=== PATIENT | female | born 2000 | race African-American/Black ===

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

== ENCOUNTER → 2019-06-29 | Outpatient (CLI) | payer BC | END | disposition home or self-care (01) | LOC: LAB EV 12:42 → LAB SHORT 12:42 | DX: Z34.91 Encounter for supervision of normal pregnancy, unspecified, first trimester (principal) | CPT/HCPCS: 84702 ==

== ENCOUNTER → 2020-01-31 | Outpatient (CLI) | payer OTHER ==
[~2020-01-31] MED LIST changes: +DOCU100 PO; +ESCI10 PO; +IBUP800 PO; +METO5A; +PRENATAL TABLE1 EAC2; +PYRI100
== END | disposition home or self-care (01) ==
LOC: LAB 14:08 → LAB SHORT 14:08
DX: Z34.03 Encounter for supervision of normal first pregnancy, third trimester (principal)
CPT/HCPCS: 87081; 87150

== ENCOUNTER 2020-02-27 21:05 | Inpatient (IN) | payer BC, OTHER ==
[~2020-02-27] VITALS: Ht 160 cm; Wt 89.0 kg
[~2020-02-27 21:05] MED LIST changes: -DOCU100 PO; -ESCI10 PO; -IBUP800 PO; -METO5A; -PRENATAL TABLE1 EAC2; -PYRI100
[2020-02-27 21:57] LABS: BASOPHILS ABSOLUTE AUTO 0.04 K/mm3 (0.00-0.23); BASOPHILS PERCENT AUTO 0 % (0-2); EOSINOPHILS ABSOLUTE AUTO 0.06 K/mm3 (0.00-0.68); EOSINOPHILS PERCENT AUTO 0 % (0-6); Hemoglobin 12.9 g/dL (11.5-16.0); IMMATURE GRAN ABSOLUTE AUTO 0.09 K/mm3 (0.00-0.10); IMMATURE GRAN PERCENT AUTO 1 % (0-1); LYMPHOCYTES ABSOLUTE AUTO 2.27 K/mm3 (0.84-5.20); LYMPHOCYTES PERCENT AUTO 14 % (21-46); MONOCYTES ABSOLUTE AUTO 1.17 K/mm3 (0.16-1.47); MONOCYTES PERCENT AUTO 7 % (4-13); Mean Corpuscular HGB 28.9 pg (26.0-34.0); Mean Corpuscular HGB Conc 33.1 g/dL (31.5-36.5); Mean Corpuscular Volume 87 fL (80-100); Mean Platelet Volume 10.6 fL (9.1-12.4); NEUTROPHILS ABSOLUTE AUTO 12.71 K/mm3 (1.96-9.15); NEUTROPHILS PERCENT AUTO 78 % (41-73); Platelet Count 242 K/mm3 (150-400); RDW Coefficient Variation 12.9 % (11.7-14.2); RDW Standard Deviation 41.7 fL (35.1-46.3); Red Blood Cell Count 4.47 M/mm3 (3.80-5.20); White Blood Cell Count 16.34 K/mm3 (4.00-11.30)
[2020-02-27] MEDS ORDERED: PRENATAL TABLE1 EAC2 (21:59)
[2020-02-27] MEDS ORDERED: PYRI100 (22:00)
[2020-02-27] MEDS ORDERED: METO5A (22:00)
[2020-02-27] MEDS ORDERED: ESCI10 PO (22:08)
[2020-02-27 22:25] LABS: Influenza A, PCR Negative (NEGATIVE); Influenza B, PCR Negative (NEGATIVE); Resp Syncytial Virus, PCR Negative (NEGATIVE); SARS-Cov-2 (COVID-19) PCR, MMC Negative (NEGATIVE)
[2020-02-28 07:54] LABS: PCO2 Cord - Venous 58.3 mmHg (40-50); PO2 Cord - Venous 24.1 mmHg (28-32); pH Umbilical Cord - Venous 7.14 (7.26-7.35)
--- NOTE | 2020-02-28 12:30 | NUR ---
ASSUMED CARE OF PT AT 1130 TODAY. REPORT RECEIVED FROM BISI ZIMMERMAN.
--- NOTE | 2020-02-28 14:50 | NUR ---
PT OUT OF ROOM WITH S/O. NB PLACED AT NURSERY WITH STAFF.
--- NOTE | 2020-02-28 15:01 | NUR ---
PT RETURNED TO ROOM AT THIS ROOM WITH NB AND S/O. DENIES NEEDS AT THIS TIME.
--- NOTE | 2020-02-29 04:04 | NUR ---
pt denies need for pain medication caring for self and nb well, states nb just breast fed well x 20
[2020-02-29 05:36] LABS: Hematocrit 35.4 % (33.0-51.0); Hemoglobin 11.6 g/dL (11.5-16.0); Mean Corpuscular HGB Conc 32.8 g/dL (31.5-36.5); Mean Corpuscular Volume 89 fL (80-100); Mean Platelet Volume 10.7 fL (9.1-12.4); Platelet Count 214 K/mm3 (150-400); RDW Coefficient Variation 13.1 % (11.7-14.2); RDW Standard Deviation 42.6 fL (35.1-46.3); White Blood Cell Count 15.36 K/mm3 (4.00-11.30)
[2020-02-29] MEDS ORDERED: DOCU100 PO (09:08)
[2020-02-29] MEDS ORDERED: IBUP800 PO (09:08)
--- NOTE | 2020-02-29 14:35 | NUR ---
RN/LC ROUNDED TO HELP W/ . PT STATES THAT HAS BEEN GOING WELL. NB HAD JUST FED. INSTRUCTED PT ON CORRECT POSITIONING AND LATCHING, NIPPLE SHAPE AFTER FEEDS, FREQUENCY OF FEEDS, AND SUPPLY AND DEMAND OF BREASTMILK. FURTHER SUPPORT OFFERED IF PT DESIRES.
== END 2020-02-29 11:10 | disposition home or self-care (01) | DRG 807 ==
LOC: OBS 21:05 → BC 21:07 → OBS 21:31 → BC 21:32
PROVIDERS: Obstetrics & Gynecology; ADMIT Family Medicine
PROC: 10D07Z6 Extraction of Products of Conception, Vacuum, Via Natural or Artificial Opening (ICD-10-PCS; principal; 2020-02-28)
PROC: 00HU33Z Insertion of Infusion Device into Spinal Canal, Percutaneous Approach (ICD-10-PCS; 2020-02-28)
PROC: 3E0R3BZ Introduction of Anesthetic Agent into Spinal Canal, Percutaneous Approach (ICD-10-PCS; 2020-02-28)
PROC: 0HQ9XZZ Repair Perineum Skin, External Approach (ICD-10-PCS; 2020-02-28)
DX: O99.824 Streptococcus B carrier state complicating childbirth (principal); Z37.0 Single live birth; Z3A.40 40 weeks gestation of pregnancy; O66.5 Attempted application of vacuum extractor and forceps; O76 Abnormality in fetal heart rate and rhythm complicating labor and delivery; O69.81X0 Labor and delivery complicated by cord around neck, without compression, not applicable or unspecified; O70.0 First degree perineal laceration during delivery; Z20.822 Contact with and (suspected) exposure to COVID-19
CPT/HCPCS: 0241U; 36415; 51702; 59025; 82803; 85025; 85027; 86850; 86900; 86901; 99214; A9270; J0290; J1885; J2001; J2405; J2590; J3010; J7120

== ENCOUNTER → 2020-05-15 | Outpatient (CLI) | payer BC, OTHER ==
[~2020-05-15] MED LIST changes: +DOCU100 PO; +ESCI10 PO; +IBUP800 PO; +METO5A; +PRENATAL TABLE1 EAC2; +PYRI100
[2020-05-18 13:11] LABS: CHLAMYDIA TRACHOMATIS, NAA Negative (Negative)
== END | disposition home or self-care (01) ==
LOC: LAB 16:11 → LAB SHORT 16:11
PROVIDERS: Obstetrics & Gynecology
DX: Z30.09 Encounter for other general counseling and advice on contraception (principal)
CPT/HCPCS: 87491; 87591; G0123

== ENCOUNTER → 2021-02-21 | Outpatient (CLI) | payer BC, OTHER ==
[2021-02-22 10:11] LABS: Candida species (DNA Probe) Negative (NEGATIVE); G. vaginalis (DNA Probe) Positive (NEGATIVE); T. vaginalis (DNA Probe) Negative (NEGATIVE)
[2021-02-23 09:31] LABS: CHLAMYDIA TRACHOMATIS, NAA Positive (Negative)
== END | disposition home or self-care (01) ==
LOC: LAB SHORT 16:38
PROVIDERS: Obstetrics & Gynecology
DX: Z11.3 Encounter for screening for infections with a predominantly sexual mode of transmission (principal); N76.0 Acute vaginitis
CPT/HCPCS: 87480; 87491; 87510; 87591; 87660

== ENCOUNTER → 2022-02-02 | Outpatient (CLI) | payer OTHER ==
[~2022-02-02] MED LIST changes: +LAMOTRIGINE100 M1 PO; +TRAZ50 PO
[2022-02-02 11:18] LABS: BASOPHILS ABSOLUTE AUTO 0.05 K/mm3 (0.00-0.23); BASOPHILS PERCENT AUTO 1 % (0-2); EOSINOPHILS ABSOLUTE AUTO 0.09 K/mm3 (0.00-0.68); EOSINOPHILS PERCENT AUTO 1 % (0-6); Hematocrit 37.2 % (33.0-51.0); Hemoglobin 11.7 g/dL (11.5-16.0); IMMATURE GRAN ABSOLUTE AUTO 0.01 K/mm3 (0.00-0.10); IMMATURE GRAN PERCENT AUTO 0 % (0-1); LYMPHOCYTES ABSOLUTE AUTO 1.34 K/mm3 (0.84-5.20); LYMPHOCYTES PERCENT AUTO 20 % (21-46); MONOCYTES ABSOLUTE AUTO 0.66 K/mm3 (0.16-1.47); MONOCYTES PERCENT AUTO 10 % (4-13); Mean Corpuscular HGB 26.4 pg (26.0-34.0); Mean Corpuscular HGB Conc 31.5 g/dL (31.5-36.5); Mean Corpuscular Volume 84 fL (80-100); Mean Platelet Volume 9.4 fL (9.1-12.4); NEUTROPHILS PERCENT AUTO 69 % (41-73); Platelet Count 311 K/mm3 (150-400); RDW Coefficient Variation 13.7 % (11.7-14.2); RDW Standard Deviation 42.4 fL (35.1-46.3); Red Blood Cell Count 4.43 M/mm3 (3.80-5.20); White Blood Cell Count 6.85 K/mm3 (4.00-11.30)
[2022-02-02 11:26] LABS: Albumin, Blood 3.3 g/dL (3.4-5.0); Albumin/Globulin Ratio 0.7 (0.8-1.8); Bilirubin, Total 0.2 mg/dL (0.1-1.0); Bun/Creatinine Ratio 11.4 (12.0-20.0); Calcium, Blood 8.8 mg/dL (8.5-10.1); Creatinine, Blood 0.79 mg/dL (0.40-1.00); Globulin, Blood 4.9 g/dL (2.2-4.0); Potassium, Blood 4.2 mmol/L (3.5-5.5); Total Protein, Blood 8.2 g/dL (6.4-8.2)
== END | disposition home or self-care (01) ==
LOC: LAB 11:11 → LAB SHORT 11:11
PROVIDERS: Physician Assistant Medical
DX: R59.0 Localized enlarged lymph nodes (principal)
CPT/HCPCS: 80053; 85025; 86644; 86645

== ENCOUNTER → 2022-08-30 | Outpatient (CLI) | payer OTHER ==
[2022-08-30 19:34] LABS: Source, Urine Clean Catch
[2022-08-30 19:38] LABS: Bacteria Not Seen /hpf; Red Blood Cells, Urine Not Seen /hpf (0-2); Squamous Epithelial Cells Few /hpf (Few); White Blood Cells, Urine 0-2 /hpf (0-5)
[2022-08-31 13:01] LABS: Candida species (DNA Probe) Negative (NEGATIVE); G. vaginalis (DNA Probe) Positive (NEGATIVE); T. vaginalis (DNA Probe) Negative (NEGATIVE)
[2022-09-03 14:07] LABS: CHLAMYDIA BY NAA Negative (Negative); GONOCOCCUS BY NAA Negative (Negative); TRICH VAG BY NAA Negative (Negative)
== END | disposition home or self-care (01) ==
LOC: LAB SHORT 19:32 → LAB 19:32
PROVIDERS: Emergency Medicine
DX: N89.8 Other specified noninflammatory disorders of vagina (principal); R30.0 Dysuria
CPT/HCPCS: 81015; 87086; 87480; 87491; 87510; 87591; 87660; 87661

== ENCOUNTER → 2022-12-19 | Outpatient (CLI) | payer OTHER ==
[2022-12-19 15:10] LABS: Alanine Aminotransfer (ALT/SGP 27 U/L (12-78); Alk Phos 73 U/L (50-136); Anion Gap 4 mmol/L (6-16); Aspartate Aminotrans (AST/SGOT 21 U/L (12-37); Bilirubin, Total 0.3 mg/dL (0.1-1.0); Blood Urea Nitrogen 14 mg/dL (8-24); Bun/Creatinine Ratio 18.9 (12.0-20.0); CHOL/HDL RATIO 2.7; CO2, Blood 28 mmol/L (21-32); Calcium, Blood 9.1 mg/dL (8.5-10.1); Chloride, Blood 105 mmol/L (98-108); Cholesterol 151 mg/dL (50-200); Creatinine, Blood 0.74 mg/dL (0.40-1.00); Globulin, Blood 4.1 g/dL (2.2-4.0); Glomerular Filtration Rate 117 (60-); Glucose, Blood 88 mg/dL (70-99); HDL Cholesterol 56 mg/dL (>39); LDL/HDL RATIO 1.5; Low Density Lipoprotein Chol 84 mg/dL (0-110); Potassium, Blood 3.9 mmol/L (3.5-5.5); Sodium, Blood 137 mmol/L (136-145); Total Protein, Blood 8.1 g/dL (6.4-8.2); Triglycerides 57 mg/dL (30-140); Very Low Density Lipoprot Chol 11 mg/dL (6-28)
[2022-12-20 11:07] LABS: RPR Reactive (Nonreactive)
[2022-12-20 11:08] LABS: RPR TITER 1:32
[2022-12-21 00:08] LABS: HIV AB/P24 AG SCREEN Non Reactive (Non Reactive)
[2022-12-21 00:08] LABS: CHLAMYDIA TRACHOMATIS, NAA Negative (Negative)
== END ==
LOC: LAB 12:42 → LAB SHORT 12:42
PROVIDERS: Nurse Practitioner Family
DX: Z13.6 Encounter for screening for cardiovascular disorders (principal); Z11.59 Encounter for screening for other viral diseases; F31.9 Bipolar disorder, unspecified
CPT/HCPCS: 80053; 80061; 84443; 86592; 86593; 86780; 86803; 87389; 87491; 87591

== ENCOUNTER 2023-04-14 06:01 | Emergency (ER) | payer OTHER ==
[~2023-04-14] VITALS: Ht 160 cm; Wt 81.7 kg
[2023-04-14] MEDS ORDERED: Acetaminophen 325 MG TABLET PO ONE (06:50)
[2023-04-14 08:22] VITALS: BP 136/88
== END 2023-04-14 08:29 | disposition home or self-care (01) ==
LOC: ER 06:01
DX: S00.11XA Contusion of right eyelid and periocular area, initial encounter (principal); W50.0XXA Accidental hit or strike by another person, initial encounter
CPT/HCPCS: 70480; 99283-25; A9270

== ENCOUNTER 2024-05-23 11:28 | Emergency (ER) | payer OTHER ==
[~2024-05-23] VITALS: Ht 162.6 cm; Wt 40.8 kg
[2024-05-23 11:49] VITALS: BP 111/78
[2024-05-23] MEDS ORDERED: Methocarbamol 500 MG Tab PO ONE (12:25)
[2024-05-23] MEDS ORDERED: Lidocaine 4% 1 Patch TOP ONE (12:25)
[2024-05-23] MEDS ORDERED: Ketorolac Tromethamine 15mg Vial IM ONE (12:25)
[2024-05-23] MEDS ORDERED: METHOCARBAMOL1000 MG PO (14:22)
[2024-05-23] MEDS ORDERED: NAPR500 PO (14:22)
== END 2024-05-23 14:26 | disposition home or self-care (01) ==
LOC: ER 11:28
DX: M62.830 Muscle spasm of back (principal); F17.210 Nicotine dependence, cigarettes, uncomplicated; Z79.899 Other long term (current) drug therapy; Z59.89 Other problems related to housing and economic circumstances
CPT/HCPCS: 72100; A9270; J1885

== ENCOUNTER → 2024-06-08 | Outpatient (CLI) | payer OTHER ==
[~2024-06-08] MED LIST changes: +METHOCARBAMOL1000 MG PO; +NAPR500 PO; +Robaxin750 MG PO
[2024-06-08 20:19] LABS: Candida Group, PCR NOT DETECTED (NOT DETECT); Candida glabrata-krusei, PCR NOT DETECTED (NOT DETECT)
[2024-06-08 21:01] LABS: Bacterial Vaginosis PCR Positive (NEGATIVE)
== END ==
LOC: LAB SHORT 17:11 → LAB 17:11
PROVIDERS: Obstetrics & Gynecology
DX: N76.0 Acute vaginitis (principal)
CPT/HCPCS: 81515

== ENCOUNTER 2024-10-02 12:31 | Emergency (ER) | payer OTHER ==
[~2024-10-02] VITALS: Ht 160 cm; Wt 86.2 kg
[2024-10-02 12:32] VITALS: BP 92/54
[2024-10-02] MEDS ORDERED: NS 1,000 ML IV ONE (12:36)
[2024-10-02] MEDS ORDERED: NS 1,000 ML IV SCH ×2 (12:40)
[2024-10-02] MEDS ORDERED: Morphine Sulfate 4 MG/1 ML Injection IV ONE ×2 (12:40→14:40)
[2024-10-02] MEDS ORDERED: Ondansetron HCl 2 MG / ML 2ML Vial IV ONE (12:40)
[2024-10-02 12:55] LABS: BASOPHILS ABSOLUTE AUTO 0.05 K/mm3 (0.00-0.23); BASOPHILS PERCENT AUTO 1 % (0-2); EOSINOPHILS ABSOLUTE AUTO 0.04 K/mm3 (0.00-0.68); EOSINOPHILS PERCENT AUTO 0 % (0-6); Hematocrit 41.5 % (33.0-51.0); Hemoglobin 13.7 g/dL (11.5-16.0); IMMATURE GRAN ABSOLUTE AUTO 0.15 K/mm3 (0.00-0.10); IMMATURE GRAN PERCENT AUTO 2 % (0-1); LYMPHOCYTES ABSOLUTE AUTO 2.88 K/mm3 (0.84-5.20); LYMPHOCYTES PERCENT AUTO 28 % (21-46); MONOCYTES ABSOLUTE AUTO 0.84 K/mm3 (0.16-1.47); MONOCYTES PERCENT AUTO 8 % (4-13); Mean Corpuscular HGB Conc 33.0 g/dL (31.5-36.5); Mean Corpuscular Volume 87 fL (80-100); NEUTROPHILS ABSOLUTE AUTO 6.23 K/mm3 (1.96-9.15); NEUTROPHILS PERCENT AUTO 61 % (41-73); NRBC ABSOLUTE 0.00 K/mm3 (0.00-0.02); NRBC Auto 0.0 /100 WBC (0.0-0.2); Platelet Count 380 K/mm3 (150-400); RDW Coefficient Variation 12.7 % (11.7-14.2); RDW Standard Deviation 40.1 fL (35.1-46.3)
[2024-10-02 13:17] LABS: Alanine Aminotransfer (ALT/SGP 32.0 U/L (12-78); Albumin, Blood 3.7 g/dL (3.4-5.0); Albumin/Globulin Ratio 0.9 (0.8-1.8); Anion Gap 11.0 mmol/L (3-11); Aspartate Aminotrans (AST/SGOT 40.0 U/L (12-37); Bilirubin, Total 0.2 mg/dL (0.1-1.0); Blood Urea Nitrogen 11.0 mg/dL (8-24); CO2, Blood 22.0 mmol/L (21-32); Calcium, Blood 8.5 mg/dL (8.5-10.1); Chloride, Blood 109.0 mmol/L (98-108); Creatinine, Blood 0.81 mg/dL (0.40-1.00); Globulin, Blood 4.3 g/dL (2.2-4.0); Glucose, Blood 94.0 mg/dL (70-99); Potassium, Blood 3.9 mmol/L (3.5-5.5); Sodium, Blood 138.0 mmol/L (136-145); Total Protein, Blood 8.0 g/dL (6.4-8.2)
[2024-10-02] MEDS ORDERED: ALDACTONE100 MG PO (13:17)
[2024-10-02] MEDS ORDERED: CLINDAMYCIN 1% TOP (13:18)
[2024-10-02] MEDS ORDERED: MOME.1TO TOP (13:18)
[2024-10-02] MEDS ORDERED: NAPR500 PO (13:19)
[2024-10-02] MEDS ORDERED: OXYACE7.5T PO (15:04)
[2024-10-02] MEDS ORDERED: CEPH500 PO (15:04)
[2024-10-02] MEDS ORDERED: DOCU100 PO (15:04)
[2024-10-02] MEDS ORDERED: ULTRA-LIGHT RO1 EACH MC (15:04)
[2024-10-02] MEDS ORDERED: Fluorescein Sod 1MG Opth Strips RIGHTEYE ONE (15:20)
[2024-10-02] MEDS ORDERED: Tetracaine HCl/Pf 0.5% Opth Soln 4 ml RIGHTEYE ONE (15:20)
[2024-10-02] MEDS ORDERED: ERYT.5TO RIGHTEYE (15:38)
== END 2024-10-02 16:37 | disposition home or self-care (01) ==
LOC: ER 12:31
PROVIDERS: Emergency Medicine
DX: S32.592A Other specified fracture of left pubis, initial encounter for closed fracture (principal); S32.302A Unspecified fracture of left ilium, initial encounter for closed fracture; S41.112A Laceration without foreign body of left upper arm, initial encounter; S71.112A Laceration without foreign body, left thigh, initial encounter; V43.62XA Car passenger injured in collision with other type car in traffic accident, initial encounter; S40.812A Abrasion of left upper arm, initial encounter; S80.812A Abrasion, left lower leg, initial encounter; S05.01XA Injury of conjunctiva and corneal abrasion without foreign body, right eye, initial encounter; S00.11XA Contusion of right eyelid and periocular area, initial encounter; F17.210 Nicotine dependence, cigarettes, uncomplicated; Z79.899 Other long term (current) drug therapy
CPT/HCPCS: 70450; 71260; 72125; 72170; 73552; 74177; 80053; 83690; 85025; 93005; 93010; 96374-59; 96375; 96376; 99285-25; A9270; J2270; J2405; J7030; Q9967